=== PATIENT | female | born 1995 | race Caucasian/White ===

== ENCOUNTER 2019-05-02 13:07 | Emergency (ER) | payer BC ==
--- NOTE | 2019-05-02 13:58 | EDM.PDOCBH ---
ED HPI GENERAL MEDICAL PROBLEM - General Chief Complaint: Behavioral/Psych Stated Complaint: ANXIETY Time Seen by Provider: 05/02/19 13:25 Source of Information: Reports: Patient, Family (Mother) History Limitations: Reports: No Limitations - History of Present Illness INITIAL COMMENTS - FREE TEXT/NARRATIVE: Ms. Brandon is a 23-year-old woman with a past medical history significant for anxiety, depression, ADHD, a suicide attempt about 1.5 years ago, and a learning disability, who states that she has been feeling depressed for about 3 weeks, but worse for the past week. She states that she feels suicidal, but does not have a plan. She feels anxious. The patient states that she is prescribed sertraline, buspirone, clonazepam, and lisdexamfetamine (Vyvanse), but that she self-discontinued her sertraline and buspirone about one year ago, because she didn't think that she needed it. She did not notify her psychiatric midlevel of her actions; she last saw her psychiatric midlevel on 02/10/2019. The patient has attempted suicide on 3 prior occasions; by pill overdose in 2014 , by cutting herself in 2016, and by pill overdose in December 2017. On all 3 occasions, she was psychiatrically hospitalized. The pateint does not have a PCP. 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 (See Below) (Ovarian cysts) Neurological History: Reports: Other (See Below) (Learning disability) Psychiatric History: Reports: ADHD, Anxiety, Depression, Suicide Attempt - Past Surgical History GI Surgical History: Reports: Appendectomy (07/29/2018) Female Surgical History: Reports: Other (See Below) (Exploratory laparoscopy for ovarian cyst 07/29/2018) Social & Family History - Family History Family Medical History: Noncontributory - Tobacco Use Smoking Status *Q: Never Smoker Tobacco Use Within Last Twelve Months: Other (See Below) (Vapes) - Caffeine Use Caffeine Use: Reports: None - Alcohol Use Alcohol Use History: Yes Alcohol Use Frequency: Socially - Recreational Drug Use Recreational Drug Use: Yes Drug Use in Last 12 Months: Yes Recreational Drug Type: Reports: Marijuana/Hashish (last smoked 2017) - Living Situation & Occupation Living situation: Reports: Single, Alone Occupation: Employed ([employer]) ED ROS GENERAL - Review of Systems Review Of Systems: ROS reveals no pertinent complaints other than HPI. ED EXAM, BEHAVIORAL HEALTH - Physical Exam Exam: See Below Exam Limited By: No Limitations General Appearance: Alert, WD/WN, No Apparent Distress Eye Exam: Bilateral Eye: EOMI, Normal Inspection Ears: Normal External Exam, Hearing Grossly Normal Nose: Normal Inspection Throat/Mouth: Normal Inspection, Normal Lips, Normal Voice, No Airway Compromise Head: Atraumatic, Normocephalic Neck: Normal Inspection, Full Range of Motion Respiratory/Chest: No Respiratory Distress, Lungs Clear, Normal Breath Sounds, No Accessory Muscle Use Cardiovascular: Normal Peripheral Pulses, Regular Rate, Rhythm, No Edema, No Gallop, No JVD, No Murmur, No Rub GI/Abdominal: Normal Bowel Sounds, Soft, Non-Tender, No Organomegaly, No Distention, No Abnormal Bruit, No Mass (Female) Exam: Deferred Rectal (Female) Exam: Deferred Back Exam: Normal Inspection, Full Range of Motion, NT Extremities: Normal Inspection, Normal Range of Motion, No Pedal Edema, Normal Capillary Refill Neurological: Alert, Normal Cognition, No Motor/Sensory Deficits, Oriented x 3 Psychiatric: Normal Affect Skin Exam: Warm, Dry, Intact, Normal color, No rash COURSE, BEHAVIORAL HEALTH COMP - Course Vital Signs: Last Vital Signs Temp 36.6 C 05/02/19 13:10 Pulse 65 05/02/19 13:10 Resp 16 05/02/19 13:10 BP 132/73 05/02/19 13:10 Pulse Ox 98 05/02/19 13:10 Medical Clearance: 05/02/19 13:56 As per the HPI, the patient is feeling depressed and suicidal, although she has no plan, and she states that she is not going to kill herself. She does not feel that she needs to be psychiatrically hospitalized, however, I am not sure what else we might be able to offer her. Even we were to restart her sertraline today, it typically takes 3-4 weeks before begins to take effect, and buspirone takes up to 3 months before it begins to take effect. I have called the office of Bailee Wheeler DNP, to see what her thoughts are. She is presently with a patient, but will call me back in a few minutes. 05/02/19 15:10 Case discussed with Bailee Wheeler DNP, at 15:05. I am going to prescribe buspirone 15 mg po BID and sertraline 50 mg po Qday. The patient is to follow- up with Ms. Wheeler on morning, 05/18/2019, at 11 AM CDT. I will prescribe enough to last through then. 05/02/19 15:16 My conversation with Ms. Wheeler, and her recommendations, discussed with the patient and her mother. Because the patient has not been taking her BuSpar or Zoloft, she has large quantities of them at home, and therefore does not require any prescriptions. I reviewed the dosage of the pills that she has in her possession, and will instruct her on the proper dosage. 05/02/19 15:33 Notified by Pooja JACKMAN that the patient would like a note for work for tomorrow, because working at [employer] adds to her depression. Departure - Departure Time of Disposition: 15:17 Disposition: Home, Self-Care 01 Condition: Good Clinical Impression: Depression, Noncompliance with medications, Suicidal ideation - Discharge Information *PRESCRIPTION DRUG MONITORING PROGRAM REVIEWED*: Not Applicable *COPY OF PRESCRIPTION DRUG MONITORING REPORT IN PATIENT BOB: Not Applicable Instructions: Suicidal Feelings: How to Help Yourself, Major Depressive Disorder, Adult Referrals: Bailee Wheeler MD [Ordering Only Provider] - Forms: ED Department Discharge, ED Return to Work/School Form Additional Instructions: You were seen in the emergency room for depression and suicidal ideation after discontinuing your Zoloft and BuSpar about a year ago. Your case was discussed with your Psychologist, Bailee Wheeler DNP. She recommended that you restart your sertraline (Zoloft) at 50 mg once a day, and that you restart your buspirone (BuSpar) at 15 mg (= half a tablet) twice a day. An appointment for you to follow-up with Ms. Wheeler has been made for , May 18, 2019, at 11 AM central time. If any other problems, including worsening of your depression or suicidal ideation, please do not hesitate to return to the ER.
== END 2019-05-02 15:39 | disposition home or self-care (01) ==
LOC: JD.ED 13:07
DX: F32.9 Major depressive disorder, single episode, unspecified (principal); R45.851 Suicidal ideations; Z91.14 Patient's other noncompliance with medication regimen; Z79.899 Other long term (current) drug therapy; Z88.2 Allergy status to sulfonamides; Z90.49 Acquired absence of other specified parts of digestive tract; Z88.0 Allergy status to penicillin
CPT/HCPCS: 99284; 99285

== ENCOUNTER 2019-06-14 22:14 | Emergency (ER) | payer BC ==
[2019-06-14] MEDS: DULoxetine 30 MG Cap PO ONE (22:53)
[2019-06-14] MEDS: busPIRone 15 MG Tab PO ONE (22:53)
[2019-06-14] MEDS: Ketorolac 30 MG/ML SDV IM ONE (22:53)
[2019-06-14] MEDS: Zolpidem 5 MG Tab PO ONE (22:54)
[2019-06-14] MEDS: ClonazePAM 1 MG Tab PO ONE (22:54)
--- NOTE | 2019-06-14 22:59 | EDM.PDOCBH ---
ED HPI GENERAL MEDICAL PROBLEM - General Chief Complaint: Behavioral/Psych Stated Complaint: ANXIETY Time Seen by Provider: 06/14/19 22:31 Source of Information: Reports: Patient, Family (parents) History Limitations: Reports: No Limitations - History of Present Illness INITIAL COMMENTS - FREE TEXT/NARRATIVE: Patient is a 23-year-old female who presents to the ED with her mother and father for the evaluation of anxiety. The patient notes that she had a friend that overdosed on heroin in her home today. Patient notes that her apartment is now considered a crime scene, so she was not able to take anything for the apartment, so she could not get her prescription medications that she takes on a daily basis. These include clonazepam, buspirone, Cymbalta, and Vyvanse. Patient notes that she is having increased anxiety and stress due to the recent passing of her friend. The patient's psychiatric provider is Bailee Beal in [facility]. Family states that she has an appointment on June 23 with her provider. The mother and father are her legal guardians, and the patient does have a developmental delay, but does live by her own intention. The mother and father were questioning whether or not she was taking illicit drugs, the patient states that she smoked marijuana once in her life, and used meth once in her life, but she vehemently denies using any sort of heroin tonight. She was also requesting something for sleep. Patient is also complaining of some right shoulder pain, she states that she slept pretty hard on her right shoulder last night as she went out and had drinks with friends. Right Shoulder Pain Score (Numeric/FACES): 5 - Related Data Allergies Allergy/AdvReac Type Severity Reaction Status Date / Time Penicillins Allergy Rash Verified 05/02/19 13:20 Sulfa (Sulfonamide Allergy Rash Verified 05/02/19 13:20 Antibiotics) Home Meds: Home Meds ClonazePAM [KlonoPIN] 0.75 mg PO BEDTIME 07/28/18 [History] busPIRone [Buspar] 15 mg PO BID 07/29/18 [History] Lisdexamfetamine Dimesylate [Vyvanse] 50 mg PO DAILY 05/02/19 [History] ClonazePAM [KlonoPIN] 0.75 mg PO BEDTIME 10 Days #15 tab 06/14/19 [Rx] DULoxetine HCl [Duloxetine HCl] 30 mg PO QPM #10 capsule. 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 Musculoskeletal History: Reports: None Neurological History: Reports: Other (See Below) Psychiatric History: Reports: ADHD, Anxiety, Depression, Suicide Attempt Endocrine/Metabolic History: Reports: None Hematologic History: Reports: None Immunologic History: Reports: None Oncologic (Cancer) History: Reports: None Dermatologic History: Reports: None - Past Surgical History Head Surgeries/Procedures: Reports: None GI Surgical History: Reports: Appendectomy Female Surgical History: Reports: Other (See Below) Social & Family History - Family History Family Medical History: Noncontributory - Tobacco Use Smoking Status *Q: Current Every Day Smoker Years of Tobacco use: 2 Packs/Tins Daily: 1 - Caffeine Use Caffeine Use: Reports: None - Recreational Drug Use Recreational Drug Use: No - Living Situation & Occupation Living situation: Reports: Single, Alone Occupation: Employed ([employer]) ED ROS GENERAL - Review of Systems Review Of Systems: See Below Constitutional: Denies: Fever, Chills HEENT: Reports: No Symptoms Respiratory: Denies: Shortness of Breath Cardiovascular: Denies: Chest Pain Endocrine: Reports: No Symptoms GI/Abdominal: Denies: Diarrhea, Nausea, Vomiting : Reports: No Symptoms Musculoskeletal: Reports: Shoulder Pain (right shoulder pain) Skin: Reports: No Symptoms Neurological: Reports: No Symptoms Psychiatric: Reports: Anxiety, Depression Hematologic/Lymphatic: Reports: No Symptoms Immunologic: Reports: No Symptoms ED EXAM, BEHAVIORAL HEALTH - Physical Exam Exam: See Below Exam Limited By: No Limitations General Appearance: Alert, WD/WN, No Apparent Distress (pt is crying and has reddened eyes in the room) Eye Exam: Bilateral Eye: Conjunctival Injection, EOMI, Normal Inspection, PERRL Ears: Normal External Exam Throat/Mouth: Normal Inspection, Normal Lips, Normal Teeth, Normal Gums, Normal Oropharynx, Normal Voice, No Airway Compromise Head: Atraumatic, Normocephalic Neck: Normal Inspection Respiratory/Chest: No Respiratory Distress, Lungs Clear, Normal Breath Sounds, No Accessory Muscle Use, Chest Non-Tender Cardiovascular: Normal Peripheral Pulses, Regular Rate, Rhythm, No Murmur GI/Abdominal: Normal Bowel Sounds, Soft, Non-Tender, No Distention, No Mass Extremities: Normal Inspection, Normal Capillary Refill, Limited Range of Motion (of right shoulder d/t pain) Neurological: Alert, Normal Mood/Affect, Normal Cognition, Normal Gait, Oriented x 3 Psychiatric: Alert, Oriented, Tearful Skin Exam: Warm, Dry, Intact, Normal color, No rash COURSE, BEHAVIORAL HEALTH COMP - Course Vital Signs: Last Vital Signs Temp 98.0 F 06/14/19 22:33 Pulse 105 H 06/14/19 22:33 Resp 20 06/14/19 22:33 BP 123/83 06/14/19 22:33 Pulse Ox 95 06/14/19 22:33 Orders, Labs, Meds: Active Orders 24 hr Category Date Time Status DRUG SCREEN, URINE [URCHEM] Stat Lab 06/14/19 22:46 Ordered Medications Discontinued Medications Generic Name Dose Route Start Last Admin Trade Name Davidq PRN Reason Stop Dose Admin Buspirone HCl 15 mg 06/14/19 22:42 06/14/19 22:53 Buspar PO 06/14/19 22:43 15 mg ONETIME ONE Administration Clonazepam 0.75 mg 06/14/19 22:41 06/14/19 22:54 Klonopin PO 06/14/19 22:42 0.75 mg ONETIME ONE Administration Duloxetine HCl 30 mg 06/14/19 22:40 06/14/19 22:53 Cymbalta PO 06/14/19 22:41 30 mg ONETIME ONE Administration Ketorolac Tromethamine 30 mg 06/14/19 22:42 06/14/19 22:53 Toradol IM 06/14/19 22:43 30 mg ONETIME ONE Administration Zolpidem Tartrate 5 mg 06/14/19 22:42 06/14/19 22:54 Ambien PO 06/14/19 22:43 5 mg ONETIME ONE Administration Discharge vs Psych Eval/Treatment:: 06/14/19 22:59 Patient presents to the ED for evaluation of her anxiety. At this time I will provide her with her nighttime medications, I did provide her with one tablet of Ambien so she may sleep tonight. The mother in the room was requesting that the patient have a urine drug screen done, to see if she was taking any sort of drugs from her friend that . The patient denies using any drugs, and refuses to give a drug screen at this time. Due to the patient's age, she is an adult, and can make decisions, and I don't find there any need to perform a urinalysis if the patient does not want to have a drug screen done. I will try to explain to the mother that due to her being adult, I cannot make her give us a urine sample. If they have any other lingering concerns they will have to probably get one legally mandated. I did provide the patient with enough medication to get her through until the appointment with her provider in [place]. Departure - Departure Time of Disposition: 23:03 Disposition: Home, Self-Care 01 Condition: Fair Clinical Impression: Anxiety, Encounter for medication refill - Discharge Information *PRESCRIPTION DRUG MONITORING PROGRAM REVIEWED*: No *COPY OF PRESCRIPTION DRUG MONITORING REPORT IN PATIENT BOB: No Prescriptions: busPIRone [Buspar] 15 mg PO BID #20 tab ClonazePAM [KlonoPIN] 0.75 mg PO BEDTIME 10 Days #15 tab DULoxetine HCl [Duloxetine HCl] 30 mg PO QPM #10 capsule. Lisdexamfetamine Dimesylate [Vyvanse] 50 mg PO QAM #10 capsule Zolpidem [Ambien] 5 mg PO BEDTIME #2 tab Instructions: Medicine Refill at the Emergency Department, Living With Anxiety Referrals: PCP,None [Primary Care Provider] - Forms: ED Department Discharge Additional Instructions: You evaluated in the ER today regarding your anxiety. You were given enough of your prescriptions to get her through until you can be evaluated by your provider in [place] on June 23. Please take them as previously prescribed. These were electronically prescribed to the [facility] pharmacy located in [place], [place] as per your request. You were also prescribed 2 tablets of Ambien, for the next couple nights, as you did experience a traumatic life change. Please use 1 tablet nightly for sleep. You may use 600 mg ibuprofen or 500 mg Tylenol for your right shoulder pain, you may also use heat or ice to the area to see if this does not help provide pain relief as well. Please follow up with your provider in [place] on June 23 as previously scheduled. Please return to the ER if your symptoms should change or worsen. - My Orders Last 24 Hours: My Active Orders 06/14/19 22:46 DRUG SCREEN, URINE [URCHEM] Stat - Assessment/Plan Last 24 Hours: My Active Orders 06/14/19 22:46 DRUG SCREEN, URINE [URCHEM] Stat
== END 2019-06-14 23:23 | disposition home or self-care (01) ==
LOC: JD.ED 22:14
DX: F41.9 Anxiety disorder, unspecified (principal); Z76.0 Encounter for issue of repeat prescription; F32.9 Major depressive disorder, single episode, unspecified; F17.210 Nicotine dependence, cigarettes, uncomplicated; Z88.0 Allergy status to penicillin; Z88.2 Allergy status to sulfonamides; Z79.899 Other long term (current) drug therapy
CPT/HCPCS: 96372; 99283; A9270; J1885

== ENCOUNTER 2019-08-08 13:21 | Emergency (ER) | payer BC ==
--- NOTE | 2019-08-08 14:41 | EDM.PDOC ---
ED HPI GENERAL MEDICAL PROBLEM - General Chief Complaint: Neurological Problem Stated Complaint: DIZZY/LETHARGIC Time Seen by Provider: 08/08/19 14:36 Source of Information: Reports: Patient History Limitations: Reports: No Limitations - History of Present Illness INITIAL COMMENTS - FREE TEXT/NARRATIVE: 23-year-old female presents the ED for evaluation of severe dizziness with standing. Both her and her mother identified that symptoms seem to have started since changing medication by psychiatrist last week. She's not been sleeping all that well and psychiatrist increased her trazodone from 50-100 mg at bedtime and started on prazosin or Minipress once daily as well. States that she is very lightheaded dizzy with standing and feels like she's going to pass out. On. Appetite has been poor and she feels very thirsty and dry. His current discussions with the psychiatrist have resulted in withdrawal of the trazodone back to 50 mg at bedtime and no further use of the Minipress. However, 2 days later she remains symptomatic. Feels hot at times. Her on initial vital signs. Onset: Sudden Onset Date: 08/05/19 Duration: Day(s):, Constant Location: Reports: Generalized ([place] sense of dizziness and weakness.) Quality: Reports: Other (Dizzy and lightheaded.) Severity: Severe Improves with: Reports: Rest (If she's lying down resting.) Worsens with: Reports: Other ([place] up) Context: Reports: Other (Recent changes to medications being used by psychiatry services with a doubling of her trazodone from 50-100 mg at bedtime and the introduction of Minipress which the dose is not listed once daily at bedtime.). Denies: Activity, Exercise, Lifting, Sick Contact, Trauma Associated Symptoms: Reports: Loss of Appetite, Malaise, Nausea/Vomiting, Other (Chronic constipation). Denies: Confusion, Chest Pain, Cough, cough w sputum, Diaphoresis, Fever/Chills, Headaches, Rash, Seizure (Mild nausea), Shortness of Breath, Syncope Headache Pain Score (Numeric/FACES): 6 - Related Data Allergies Allergy/AdvReac Type Severity Reaction Status Date / Time Penicillins Allergy Rash Verified 07/04/19 12:11 Sulfa (Sulfonamide Allergy Rash Verified 07/04/19 12:11 Antibiotics) Home Meds: Home Meds Lisdexamfetamine Dimesylate [Vyvanse] 50 mg PO QAM #10 capsule 06/14/19 [Rx] busPIRone [Buspar] 15 mg PO BID #20 tab 06/14/19 [Rx] ClonazePAM [KlonoPIN] 0.5 mg PO DAILY PRN 07/04/19 [History] DULoxetine HCl [Duloxetine HCl] 60 mg PO QPM 07/04/19 [History] Cetirizine [ZyrTEC] 10 mg PO DAILY 08/08/19 [History] ClonazePAM [KlonoPIN] 1 mg PO BEDTIME 08/08/19 [History] Multivitamin Gummies 1 tab PO DAILY 08/08/19 [History] medroxyPROGESTERone Acetate [Depo-Provera] 1 injection INJECT Q3M 08/08/19 [ History] traZODone HCl [Trazodone HCl] 50 mg PO BEDTIME 08/08/19 [History] Past Medical History HEENT History: Reports: Allergic Rhinitis, Impaired Vision Cardiovascular History: Reports: None Respiratory History: Reports: None Gastrointestinal History: Reports: None Genitourinary History: Reports: None 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 (See Below) Other 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: control Musculoskeletal History: Reports: None Neurological History: Reports: Other (See Below) Psychiatric History: Reports: ADHD, Anxiety, Depression, Suicide Attempt, Suicidal Ideation Endocrine/Metabolic History: Reports: None Hematologic History: Reports: None Immunologic History: Reports: None Oncologic (Cancer) History: Reports: None Dermatologic History: Reports: None - Past Surgical History Head Surgeries/Procedures: Reports: None GI Surgical History: Reports: Appendectomy Female Surgical History: Reports: Other (See Below) Social & Family History - Family History Family Medical History: Noncontributory - Tobacco Use Smoking Status *Q: Current Every Day Smoker Years of Tobacco use: 4 Packs/Tins Daily: 1 - Caffeine Use Caffeine Use: Reports: Coffee - Recreational Drug Use Recreational Drug Use: No - Living Situation & Occupation Living situation: Reports: Single, Alone Occupation: Employed ([employer]) ED ROS GENERAL - Review of Systems Review Of Systems: See Below Constitutional: Reports: Malaise, Weakness, Fatigue, Decreased Appetite. Denies : Fever, Chills HEENT: Reports: Other (Dizziness but it's more of a sensation that she might pass out.). Denies: Vertigo Respiratory: Reports: No Symptoms Cardiovascular: Reports: No Symptoms Endocrine: Reports: No Symptoms GI/Abdominal: Reports: Constipation : Reports: No Symptoms Musculoskeletal: Reports: No Symptoms Skin: Reports: No Symptoms Neurological: Reports: Dizziness, Difficulty Walking, Weakness. Denies: Confusion, Headache, Numbness, Paresthesia, Pre-Existing Deficit, Seizure, Syncope, Tingling Psychiatric: Reports: Anxiety (Due to feeling so dizzy. ), Depression (History of PTSD.), Other Hematologic/Lymphatic: Reports: No Symptoms Immunologic: Reports: No Symptoms ED EXAM, NEURO - Physical Exam Exam: See Below Exam Limited By: No Limitations General Appearance: Alert, WD/WN, No Apparent Distress, Other (Ears tired. Temperature is 36.8 heart rate is 54 BP 108/63. Respondent is 22 with sats of 90 % on room air.) Eye Exam: Bilateral Eye: Normal Inspection Ears: Normal TMs Throat/Mouth: Normal Inspection, Normal Lips, Normal Teeth, Normal Oropharynx Head Exam: Atraumatic, Normocephalic Neck: Normal Inspection, Supple, Non-Tender, Full Range of Motion. No: Lymphadenopathy (L), Lymphadenopathy (R) Respiratory/Chest: No Respiratory Distress, Lungs Clear, Normal Breath Sounds, Chest Non-Tender Cardiovascular: Normal Peripheral Pulses, No Edema, No Gallop, No Murmur, No Rub , Bradycardia Neurological: Alert, Oriented x 3 Extremities: Normal Inspection, Normal Range of Motion, Non-Tender Psychiatric: Flat Affect, Other Skin Exam: Warm, Dry, Intact (Pe[place] tired), Normal Color, No Rash Course - Vital Signs Last Recorded V/S: Last Vital Signs Temp 36.8 C 08/08/19 13:58 Pulse 54 L 08/08/19 13:58 Resp 20 08/08/19 13:58 BP 108/63 08/08/19 13:58 Pulse Ox 98 08/08/19 13:58 Orthostatic Blood Pressure [ 95/68 Standing] Orthostatic Blood Pressure [ 93/64 Sitting] Orthostatic Blood Pressure [ 96/61 Supine] - Orders/Labs/Meds Orders: Active Orders 24 hr Category Date Time Status Orthostatic Vital Signs [RC] ASDIRECTED Care 08/08/19 14:35 Active Labs: Laboratory Tests 08/08/19 08/08/19 08/08/19 Range/Units 15:20 15:20 15:20 WBC 4.16 (3.98-10.04) K/mm3 RBC 4.63 (3.98-5.22) M/mm3 Hgb 13.2 (11.2-15.7) gm/dl Hct 38.5 (34.1-44.9) % MCV 83.2 D (79.4-94.8) fl MCH 28.5 (25.6-32.2) pg MCHC 34.3 (32.2-35.5) g/dl RDW Std Deviation 39.0 (36.4-46.3) fL Plt Count 189 (182-369) K/mm3 MPV 10.5 (9.4-12.3) fl Neut % (Auto) 48.0 (34.0-71.1) % Lymph % (Auto) 42.8 (19.3-51.7) % [place] % (Auto) 7.0 (4.7-12.5) % Eos % (Auto) 1.7 (0.7-5.8) Baso % (Auto) 0.5 (0.1-1.2) % Neut # (Auto) 2.00 (1.56-6.13) K/mm3 Lymph # (Auto) 1.78 (1.18-3.74) K/mm3 [place] # (Auto) 0.29 (0.24-0.36) K/mm3 Eos # (Auto) 0.07 (0.04-0.36) K/mm3 Baso # (Auto) 0.02 (0.01-0.08) K/mm3 Sodium 143 (136-145) mEq/L Potassium 3.8 (3.5-5.1) mEq/L Chloride 106 (98-107) mEq/L Carbon Dioxide 28 (21-32) mEq/L Anion Gap 12.8 (5-15) BUN 15 (7-18) mg/dL Creatinine 0.9 (0.55-1.02) mg/dL Est Cr Clr Drug Dosing 92.56 mL/min Estimated GFR (MDRD) > 60 (>60) mL/min BUN/Creatinine Ratio 16.7 (14-18) Glucose 112 H (74-106) mg/dL Calcium 8.8 (8.5-10.1) mg/dL Total Bilirubin 0.7 (0.2-1.0) mg/dL AST 9 L (15-37) U/L ALT 15 (14-59) U/L Alkaline Phosphatase 52 (46-116) U/L C-Reactive Protein < 0.2 (<1.0) mg/dL Total Protein 6.7 (6.4-8.2) g/dl Albumin 4.2 (3.4-5.0) g/dl Globulin 2.5 gm/dL Albumin/Globulin Ratio 1.7 (1-2) HCG, Qual Negative (NEGATIVE) Meds: Medications Discontinued Medications Generic Name Dose Route Start Last Admin Trade Name Carolynn PRN Reason Stop Dose Admin Dextrose/Sodium Chloride 1,000 mls @ 999 mls/hr 08/08/19 15:15 08/08/19 15:25 Dextrose 5%-Normal Saline IV 999 mls/hr ASDIRECTED JAMARI Administration Dextrose/Lactated Ringer's 1,000 mls @ 999 mls/hr 08/08/19 16:45 08/08/19 17: 06 Dextrose 5%-Lactated Ringers IV 999 mls/hr ASDIRECTED JAMARI Administration - Radiology Interpretation Free Text/Narrative:: 23-year-old female presents to the ED due to severe dizziness with standing. Since change in medications by her psychiatrist last week. Her trazodone was increased from 50-100 mg once daily at bedtime to help her sleep better. Started on August 04. On Wednesday she also started Minipress dose not listed once daily which seemed to really make her symptoms much worse. Subsequent discussion with the psychiatrist is resulted in reduction of the trazodone back to 50 mg a day and the discontinuation of the Minipress. Still feeling dizzy lightheaded with standing. She feels mildly nauseated. [place] is otherwise completely normal. Her blood pressure is 108/60. Plan orthostatic BPs to be done. Likely require IV fluids as I suspect she will be orthostatic. Her medication Minipress is already been discontinued. - Re-Assessments/Exams Free Text/Narrative Re-Assessment/Exam: 08/08/19 15:09 orthostatic BPs reveal a mild drop in the systolic blood pressure from 98-95 but a marked increase in heart rate from 60-92/m. He is therefore orthostatic by definition. She'll be given a liter of D5 normal saline to routine labs will be obtained. Is still likely a residual effect of increased medications trazodone and the introduction of Minipress 2 mg at bedtime given 2 nights ago. 08/08/19 15:55 Labs reveal a normal white count at 4.16. The outer dip is 48% neutrophils. Hemoglobin is 13.2 with hematocrit of 38.5. Blood count 189,000. 08/08/19 16:25 Chemistry reveals a sodium of 143 potassium 3.8. Chloride is 106 with a bicarbonate of 28. And a gap is 12.8. BUN is 15 with a creatinine of 0.9. GFR remains greater than 60. Glucose is 112 calcium is 8.8 x 0.7 liver function otherwise normal C-reactive protein less than 0.2 hCG was negative. 08/08/19 16:40 nurses repeated her orthosis and she did much better but she still feeling dizzy when standing and has yet to void. She. Last voided at 11: 00 last night. The labs don't reflect this degree of dehydration. However we will proceed with a second liter of IV fluids D5 LR at open. 08/08/19 18:22: Patient has completed second liter of IV fluids and is feeling improved. Dizzy with standing. Says his orthostatic hypotension due to adverse effect to medication Minipress. She has taken only 1 tablet of this on Wednesday night at bedtime 2 days ago. The half-life of this medication is 3 days and she should be improved tomorrow. She is to maintain adequate hydration with Gatorade and/or Powerade. Regular diet. As far as medication to help sleep advise taking her usual medications trazodone 50 mg with clonazepam at bedtime and if not sleeping in an hour she can repeat the trazodone 50 mg tablet. They will be following up with psychiatry in the near future. Departure - Departure Time of Disposition: 18:06 Disposition: Home, Self-Care 01 Condition: Fair Clinical Impression: Orthostatic hypotension Adverse effects of medication Qualifiers: Encounter type: initial encounter Qualified Code(s): T50.905A - Adverse effect of unspecified drugs, medicaments and biological substances, initial encounter - Discharge Information *PRESCRIPTION DRUG MONITORING PROGRAM REVIEWED*: Not Applicable *COPY OF PRESCRIPTION DRUG MONITORING REPORT IN PATIENT BOB: Not Applicable Instructions: Hypotension, [id number] Referrals: PCP,None [Primary Care Provider] - Forms: ED Department Discharge Additional Instructions: Evaluation the emergency room today in regards to persistent dizziness and feeling like her going to pass out with standing after taking new medication Minipress 2 mg on Wednesday evening. I believe strongly that this medication contributed to your illness and is pretty well out of her system after 72 hours. Testing in the ED did show that she were suffering orthostatic hypotension which means that her blood pressure normally goes up when we stand up to fight off the effect of gravity Dropped with a marked increase in heart rat Lab tests proved to be normal. You were treated with 2 L liters of intravenous fluids while in the ED to improve blood pressure. At home continue to take plenty of fluids such as Gatorade or Powerade which is very similar to IV fluids. No further use of Minipress. Leave it is okay to use double dose of trazodone if necessary to help sleep. Suggest taking 50 mg with her clonazepam and if not sleeping in an hour you may repeat the trazodone 50 mg by mouth. Follow-up with psychiatrist as planned. Sepsis Event Note - Evaluation Sepsis Screening Result: No Definite Risk - Focused Exam Vital Signs: Vital Signs Temp Pulse Resp BP Pulse Ox 08/08/19 13:58 36.8 C 54 L 20 108/63 98 Date Exam was Performed: 08/08/19 Time Exam was Performed: 23:21 - My Orders Last 24 Hours: My Active Orders 08/08/19 14:35 Orthostatic Vital Signs [RC] ASDIRECTED - Assessment/Plan Last 24 Hours: My Active Orders 08/08/19 14:35 Orthostatic Vital Signs [RC] ASDIRECTED
[2019-08-08] MEDS ORDERED: Dextrose 5%-0.9% NaCl 1,000 ML IV SCH (15:15)
[2019-08-08] MEDS ORDERED: Dextrose 5%-Lactated Ringers 1,000 ML IV SCH (16:45)
== END 2019-08-08 18:25 | disposition home or self-care (01) ==
LOC: SUPCPDRO 13:21 → JD.ED 13:21
DX: I95.1 Orthostatic hypotension (principal); T50.905A Adverse effect of unspecified drugs, medicaments and biological substances, initial encounter; F32.9 Major depressive disorder, single episode, unspecified; F17.210 Nicotine dependence, cigarettes, uncomplicated; Z88.0 Allergy status to penicillin; Z88.2 Allergy status to sulfonamides; Z79.899 Other long term (current) drug therapy
CPT/HCPCS: 36415; 80053; 84703; 85025; 86140; 96360; 96361; 99284; J7042; J7121

== ENCOUNTER 2019-10-23 06:44 | Emergency (ER) | payer BC ==
[2019-10-23] MEDS ORDERED: Ondansetron 4 MG Tab.DIS PO ONE (07:24)
--- NOTE | 2019-10-23 09:49 | EDM.PDOC ---
ED HPI GENERAL MEDICAL PROBLEM - General Chief Complaint: Abdominal Pain Stated Complaint: STOMACH PAINS Time Seen by Provider: 10/23/19 07:08 Source of Information: Reports: Patient, RN Notes Reviewed - History of Present Illness INITIAL COMMENTS - FREE TEXT/NARRATIVE: 24-year-old male comes in with lower mid abdominal and pelvic discomfort. This just started in the last day or so. Pain does not radiate. There is been no upper abdominal pain with this. No vomiting or diarrhea. No voiding symptomatology. Does have history of prior appendectomy. Bilateral Lower Abdomen Pain Score (Numeric/FACES): 7 - Related Data Allergies Allergy/AdvReac Type Severity Reaction Status Date / Time Penicillins Allergy Rash Verified 10/23/19 06:47 Sulfa (Sulfonamide Allergy Rash Verified 10/23/19 06:47 Antibiotics) Home Meds: Home Meds Lisdexamfetamine Dimesylate [Vyvanse] 50 mg PO QAM #10 capsule 06/14/19 [Rx] busPIRone [Buspar] 15 mg PO BID #20 tab 06/14/19 [Rx] ClonazePAM [KlonoPIN] 0.5 mg PO DAILY PRN 07/04/19 [History] DULoxetine HCl [Duloxetine HCl] 60 mg PO QPM 07/04/19 [History] Cetirizine [ZyrTEC] 10 mg PO DAILY 08/08/19 [History] ClonazePAM [KlonoPIN] 1 mg PO BEDTIME 08/08/19 [History] Multivitamin Gummies 1 tab PO DAILY 08/08/19 [History] medroxyPROGESTERone Acetate [Depo-Provera] 1 injection INJECT Q3M 08/08/19 [ History] traZODone HCl [Trazodone HCl] 50 mg PO BEDTIME 08/08/19 [History] Nitrofurantoin Monohyd/M-Cryst [Macrobid 100 mg Capsule] 100 mg PO BID #10 capsule 10/23/19 [Rx] Past Medical History - Past Health History Medical/Surgical History: Denies Medical/Surgical History HEENT History: Reports: Allergic Rhinitis, Impaired Vision Other HEENT History: Wears glasses Cardiovascular History: Reports: None Respiratory History: Reports: None Gastrointestinal History: Reports: None Genitourinary History: Reports: None 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 (See Below) 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 Musculoskeletal History: Reports: None Neurological History: Reports: Other (See Below) Psychiatric History: Reports: ADHD, Anxiety, Depression, Suicide Attempt, Suicidal Ideation Endocrine/Metabolic History: Reports: None Hematologic History: Reports: None Immunologic History: Reports: None Oncologic (Cancer) History: Reports: None Dermatologic History: Reports: None - Past Surgical History Head Surgeries/Procedures: Reports: None HEENT Surgical History: Reports: Oral Surgery Other HEENT Surgeries/Procedures: [place] tooth extraction GI Surgical History: Reports: Appendectomy Female Surgical History: Reports: Other (See Below) Social & Family History - Family History Family Medical History: Noncontributory - Tobacco Use Smoking Status *Q: Current Every Day Smoker Years of Tobacco use: 5 Packs/Tins Daily: 0.5 - Caffeine Use Caffeine Use: Reports: Coffee - Recreational Drug Use Recreational Drug Use: Yes Drug Use in Last 12 Months: Yes Recreational Drug Type: Reports: Oxycodone Recreational Drug Use Frequency: Not Used In Over 2 Months - Living Situation & Occupation Living situation: Reports: Single, Alone Occupation: Employed ([employer]) ED ROS GENERAL - Review of Systems Review Of Systems: See Below Constitutional: Denies: Fever, Chills, Diaphoresis HEENT: Reports: No Symptoms Respiratory: Denies: Shortness of Breath Cardiovascular: Denies: Chest Pain GI/Abdominal: Reports: Abdominal Pain (Lower mid abdominal and pelvic) : Reports: No Symptoms Musculoskeletal: Denies: Back Pain Skin: Reports: No Symptoms Neurological: Reports: No Symptoms ED EXAM, RENAL/ - Physical Exam Exam: See Below General Appearance: Alert, No Apparent Distress Throat/Mouth: Normal Inspection, Normal Oropharynx Head: Atraumatic Neck: Supple Respiratory/Chest: No Respiratory Distress, Lungs Clear, Normal Breath Sounds Cardiovascular: Regular Rate, Rhythm GI/Abdominal: Soft, Other (Very mild lower mid abdominal tenderness, upper abdomen nontender). No: Guarding, Rebound Back Exam: No: CVA Tenderness (L), CVA Tenderness (R) Neurological: Alert, Oriented, No Motor/Sensory Deficits Skin Exam: Warm, Dry, Normal Color Course - Vital Signs Last Recorded V/S: Last Vital Signs Temp 98.1 F 10/23/19 06:47 Pulse 84 10/23/19 06:47 Resp 18 10/23/19 06:47 BP 124/65 03/09/20 06:47 Pulse Ox 100 10/23/19 06:47 - Orders/Labs/Meds Orders: Active Orders 24 hr Category Date Time Status CULTURE URINE [RM] Stat Lab 10/23/19 08:09 Received Labs: Laboratory Tests 10/23/19 10/23/19 10/23/19 Range/Units 07:40 07:40 07:40 WBC 4.33 (3.98-10.04) K/mm3 RBC 4.21 (3.98-5.22) M/mm3 Hgb 12.0 (11.2-15.7) gm/dl Hct 36.6 (34.1-44.9) % MCV 86.9 D (79.4-94.8) fl MCH 28.5 (25.6-32.2) pg MCHC 32.8 (32.2-35.5) g/dl RDW Std Deviation 39.8 (36.4-46.3) fL Plt Count 222 (182-369) K/mm3 MPV 10.4 (9.4-12.3) fl Neut % (Auto) 50.2 (34.0-71.1) % Lymph % (Auto) 39.7 (19.3-51.7) % [place] % (Auto) 6.9 (4.7-12.5) % Eos % (Auto) 2.5 (0.7-5.8) Baso % (Auto) 0.5 (0.1-1.2) % Neut # (Auto) 2.17 (1.56-6.13) K/mm3 Lymph # (Auto) 1.72 (1.18-3.74) K/mm3 [place] # (Auto) 0.30 (0.24-0.36) K/mm3 Eos # (Auto) 0.11 (0.04-0.36) K/mm3 Baso # (Auto) 0.02 (0.01-0.08) K/mm3 Sodium 146 H (136-145) mEq/L Potassium 4.2 (3.5-5.1) mEq/L Chloride 110 H (98-107) mEq/L Carbon Dioxide 27 (21-32) mEq/L Anion Gap 13.2 (5-15) BUN 12 (7-18) mg/dL Creatinine 0.8 (0.55-1.02) mg/dL Est Cr Clr Drug Dosing 103.26 mL/min Estimated GFR (MDRD) > 60 (>60) mL/min BUN/Creatinine Ratio 15.0 (14-18) Glucose 95 (74-106) mg/dL Calcium 8.3 L (8.5-10.1) mg/dL Total Bilirubin 0.4 (0.2-1.0) mg/dL AST 10 L (15-37) U/L ALT 12 L (14-59) U/L Alkaline Phosphatase 52 (46-116) U/L C-Reactive Protein <0.2 (<1.0) mg/dL Total Protein 6.1 L (6.4-8.2) g/dl Albumin 3.6 (3.4-5.0) g/dl Globulin 2.5 gm/dL Albumin/Globulin Ratio 1.4 (1-2) HCG, Qual (NEGATIVE) Urine Color (Yellow) Urine Appearance (Clear) Urine pH (5.0-8.0) Ur Specific [place] (1.005-1.030) Urine Protein (Negative) Urine Glucose (UA) (Negative) Urine Ketones (Negative) Urine Occult Blood (Negative) Urine Nitrite (Negative) Urine Bilirubin (Negative) Urine Urobilinogen (0.2-1.0) Ur Leukocyte Esterase (Negative) Urine RBC (0-5) /hpf Urine WBC (0-5) /hpf Ur Epithelial Cells (0-5) /hpf Urine Bacteria (FEW) /hpf Urine Mucus (FEW) /hpf 10/23/19 10/23/19 Range/Units 07:40 08:09 WBC (3.98-10.04) K/mm3 RBC (3.98-5.22) M/mm3 Hgb (11.2-15.7) gm/dl Hct (34.1-44.9) % MCV (79.4-94.8) fl MCH (25.6-32.2) pg MCHC (32.2-35.5) g/dl RDW Std Deviation (36.4-46.3) fL Plt Count (182-369) K/mm3 MPV (9.4-12.3) fl Neut % (Auto) (34.0-71.1) % Lymph % (Auto) (19.3-51.7) % [place] % (Auto) (4.7-12.5) % Eos % (Auto) (0.7-5.8) Baso % (Auto) (0.1-1.2) % Neut # (Auto) (1.56-6.13) K/mm3 Lymph # (Auto) (1.18-3.74) K/mm3 [place] # (Auto) (0.24-0.36) K/mm3 Eos # (Auto) (0.04-0.36) K/mm3 Baso # (Auto) (0.01-0.08) K/mm3 Sodium (136-145) mEq/L Potassium (3.5-5.1) mEq/L Chloride (98-107) mEq/L Carbon Dioxide (21-32) mEq/L Anion Gap (5-15) BUN (7-18) mg/dL Creatinine (0.55-1.02) mg/dL Est Cr Clr Drug Dosing mL/min Estimated GFR (MDRD) (>60) mL/min BUN/Creatinine Ratio (14-18) Glucose (74-106) mg/dL Calcium (8.5-10.1) mg/dL Total Bilirubin (0.2-1.0) mg/dL AST (15-37) U/L ALT (14-59) U/L Alkaline Phosphatase (46-116) U/L C-Reactive Protein (<1.0) mg/dL Total Protein (6.4-8.2) g/dl Albumin (3.4-5.0) g/dl Globulin gm/dL Albumin/Globulin Ratio (1-2) HCG, Qual Negative (NEGATIVE) Urine Color Yellow (Yellow) Urine Appearance Slt cloudy H (Clear) Urine pH 6.0 (5.0-8.0) Ur Specific [place] > or = 1.030 (1.005-1.030) Urine Protein Negative (Negative) Urine Glucose (UA) Negative (Negative) Urine Ketones Negative (Negative) Urine Occult Blood Negative (Negative) Urine Nitrite Negative (Negative) Urine Bilirubin Negative (Negative) Urine Urobilinogen 0.2 (0.2-1.0) Ur Leukocyte Esterase 1+ H (Negative) Urine RBC 0-5 (0-5) /hpf Urine WBC 5-10 H (0-5) /hpf Ur Epithelial Cells 0-5 (0-5) /hpf Urine Bacteria Moderate H (FEW) /hpf Urine Mucus Many H (FEW) /hpf Meds: Medications Discontinued Medications Generic Name Dose Route Start Last Admin Trade Name Carolynn PRN Reason Stop Dose Admin Ondansetron HCl 4 mg 10/23/19 07:24 10/23/19 07:38 Zofran Odt PO 10/23/19 07:25 4 mg ONETIME ONE Administration Departure - Departure Time of Disposition: 09:44 Disposition: Home, Self-Care 01 Condition: Fair Clinical Impression: UTI (urinary tract infection) - Discharge Information Prescriptions: Nitrofurantoin Monohyd/M-Cryst [Macrobid 100 mg Capsule] 100 mg PO BID #10 capsule Referrals: PCP,None [Primary Care Provider] - Forms: ED Department Discharge Additional Instructions: Drink plenty of water to maintain hydration, Macrobid 100 mg twice daily for 5 days. Prescription has been sent electronically to [facility]. Urine culture has been ordered. It usually does take about 2 days for those results to become available. Follow-up with 1 of our medical providers at our [facility] medical clinic Wednesday or this week. Call [phone] for appointment. Sepsis Event Note - Evaluation Sepsis Screening Result: No Definite Risk - Focused Exam Vital Signs: Vital Signs Temp Pulse Resp BP Pulse Ox 10/23/19 06:47 98.1 F 84 18 124/65 100 Date Exam was Performed: 10/23/19 Time Exam was Performed: 09:51 - My Orders Last 24 Hours: My Active Orders 10/23/19 08:09 CULTURE URINE [RM] Stat - Assessment/Plan Last 24 Hours: My Active Orders 10/23/19 08:09 CULTURE URINE [RM] Stat
== END 2019-10-23 10:10 | disposition home or self-care (01) ==
LOC: JD.ED 06:44
DX: N39.0 Urinary tract infection, site not specified (principal); F17.210 Nicotine dependence, cigarettes, uncomplicated; F41.9 Anxiety disorder, unspecified; F32.9 Major depressive disorder, single episode, unspecified; Z88.0 Allergy status to penicillin; Z88.2 Allergy status to sulfonamides; Z79.899 Other long term (current) drug therapy
CPT/HCPCS: 36415; 80053; 81001; 84703; 85025; 86140; 87086; 99284; A9270; 99283

== ENCOUNTER 2020-03-06 09:03 | Emergency (ER) | payer SELFPAY ==
[2020-03-06] MEDS ORDERED: Albuterol 6.7 GM Inhaler INH ONE (09:58)
--- NOTE | 2020-03-06 10:20 | EDM.PDOC ---
ED HPI GENERAL MEDICAL PROBLEM - General Chief Complaint: Respiratory Problem Stated Complaint: SOB Time Seen by Provider: 03/06/20 09:26 Source of Information: Reports: Patient History Limitations: Reports: No Limitations - History of Present Illness INITIAL COMMENTS - FREE TEXT/NARRATIVE: The patient presents with a fever, sore throat, cough and shortness of breath. This has been going on for a few days. She was seen at the walk in clinic a couple of days ago and was checked for strep and COVID. The strep was negative. The COVID is pending. She says she has more shortness of breath. She has no history of asthma but she does get bronchitis easily. She has no loss of taste and smell. She has no other medical problems. Onset: Gradual Duration: Day(s): Severity: Moderate Improves with: Reports: None Worsens with: Reports: None Associated Symptoms: Reports: Cough, Fever/Chills, Shortness of Breath. Denies: Chest Pain, Nausea/Vomiting Chest Pain Score (Numeric/FACES): 6 - Related Data Allergies Allergy/AdvReac Type Severity Reaction Status Date / Time Penicillins Allergy Severe Rash Verified 03/06/20 09:33 Sulfa (Sulfonamide Allergy Severe Rash Verified 03/06/20 09:33 Antibiotics) Home Meds: Home Meds Lisdexamfetamine Dimesylate [Vyvanse] 50 mg PO QAM #10 capsule 06/14/19 [Rx] busPIRone [Buspar] 15 mg PO BID #20 tab 06/14/19 [Rx] ClonazePAM [KlonoPIN] 0.5 mg PO DAILY PRN 07/04/19 [History] DULoxetine HCl [Duloxetine HCl] 60 mg PO QPM 07/04/19 [History] Cetirizine [ZyrTEC] 10 mg PO DAILY 08/08/19 [History] ClonazePAM [KlonoPIN] 1 mg PO BEDTIME 08/08/19 [History] Multivitamin Gummies 1 tab PO DAILY 08/08/19 [History] medroxyPROGESTERone Acetate [Depo-Provera] 1 injection INJECT Q3M 08/08/19 [History] traZODone HCl [Trazodone HCl] 50 mg PO BEDTIME 08/08/19 [History] Nitrofurantoin Monohyd/M-Cryst [Macrobid 100 mg Capsule] 100 mg PO BID #10 capsule 10/23/19 [Rx] Azithromycin [Zithromax] 250 mg PO DAILY #6 tab 03/06/20 [Rx] Codeine/Promethazine [Phenergan with Codeine] 5 - 10 ml PO Q6HR PRN #300 ml 03/06/20 [Rx] Past Medical History - Past Health History Medical/Surgical History: Denies Medical/Surgical History HEENT History: Reports: Allergic Rhinitis, Impaired Vision Other HEENT History: Wears glasses Cardiovascular History: Reports: None Respiratory History: Reports: Bronchitis, Recurrent Gastrointestinal History: Reports: None Genitourinary History: Reports: None 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: Other (See Below) Other ELECTRONICS ENGINEERING 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 History: control Musculoskeletal History: Reports: None Neurological History: Reports: Other (See Below) Psychiatric History: Reports: ADHD, Anxiety, Depression, Suicide Attempt, Suicidal Ideation Endocrine/Metabolic History: Reports: None Hematologic History: Reports: None Immunologic History: Reports: None Oncologic (Cancer) History: Reports: None Dermatologic History: Reports: None - Past Surgical History Head Surgeries/Procedures: Reports: None HEENT Surgical History: Reports: Oral Surgery Other HEENT Surgeries/Procedures: [place] tooth extraction GI Surgical History: Reports: Appendectomy Female Surgical History: Reports: Other (See Below) Social & Family History - Family History Family Medical History: Noncontributory - Tobacco Use Smoking Status *Q: Light Tobacco Smoker Years of Tobacco use: 4 Packs/Tins Daily: 0.2 - Caffeine Use Caffeine Use: Reports: Coffee - Living Situation & Occupation Living situation: Reports: Single, Alone Occupation: Employed ([employer]) ED ROS GENERAL - Review of Systems Review Of Systems: See Below Constitutional: Reports: Fever, Chills HEENT: Reports: Throat Pain Respiratory: Reports: Shortness of Breath, Cough Cardiovascular: Reports: No Symptoms Endocrine: Reports: No Symptoms GI/Abdominal: Reports: No Symptoms : Reports: No Symptoms Musculoskeletal: Reports: No Symptoms ED EXAM, GENERAL - Physical Exam Exam: See Below Exam Limited By: No Limitations General Appearance: Alert, No Apparent Distress Ears: Normal External Exam Nose: Normal Inspection Head: Atraumatic, Normocephalic Neck: Normal Inspection Respiratory/Chest: No Respiratory Distress, Wheezing Cardiovascular: Regular Rate, Rhythm, No Edema, No Murmur GI/Abdominal: Soft, Non-Tender, No Organomegaly, No Mass Back Exam: Normal Inspection Course - Vital Signs Last Recorded V/S: Last Vital Signs Temp 97.6 F 03/06/20 09:22 Pulse 93 03/06/20 09:22 Resp 20 03/06/20 09:22 BP 127/95 H 03/06/20 09:22 Pulse Ox 97 03/06/20 09:22 - Orders/Labs/Meds Orders: Active Orders 24 hr Category Date Time Status RT Post Treatment Assessment [RC] Click to Edit Care 03/06/20 09:59 Active RT Pre-Treatment Assessment [RC] Click to Edit Care 03/06/20 09:59 Active CXR [Chest 1V Frontal] [CR] Stat Exams 03/06/20 09:59 Taken Meds: Medications Discontinued Medications Generic Name Dose Route Start Last Admin Trade Name Freq PRN Reason Stop Dose Admin Albuterol 0 gm 03/06/20 09:58 03/06/20 10:54 Proventil Hfa INH 03/06/20 09:59 2 puff ONETIME ONE Administration - Re-Assessments/Exams Free Text/Narrative Re-Assessment/Exam: 03/06/20 10:20 I ordered a CXR and albuterol 2 puffs. 03/06/20 11:02 Her CXR looks good. I will treat her for bronchitis and wait for her COVID test. Departure - Departure Time of Disposition: 11:05 Disposition: Home, Self-Care 01 Condition: Good Clinical Impression: Bronchitis - Discharge Information *PRESCRIPTION DRUG MONITORING PROGRAM REVIEWED*: No *COPY OF PRESCRIPTION DRUG MONITORING REPORT IN PATIENT BOB: No Prescriptions: Codeine/Promethazine [Phenergan with Codeine] 5 - 10 ml PO Q6HR PRN #300 ml PRN Reason: Cough Azithromycin [Zithromax] 250 mg PO DAILY #6 tab Referrals: PCP,None [Primary Care Provider] - Forms: ED Department Discharge Additional Instructions: Use the albuterol 2 puffs every 6 hours as needed for shortness of breath. Take the zithromax 2 pills on day 1 and one pill on day 2 through 5. Use the phenergan with codeine 5 to 10 mls every 6 hours as needed for cough. Quarantine in your apartment until the COVID results. If positive, you will need to do that for 2 weeks. Sepsis Event Note (ED) - Evaluation Sepsis Screening Result: Possible Sepsis Risk - Focused Exam Vital Signs: Vital Signs Temp Pulse Resp BP Pulse Ox 03/06/20 09:22 97.6 F 93 20 127/95 H 97 - My Orders Last 24 Hours: My Active Orders 03/06/20 09:59 RT Post Treatment Assessment [RC] Click to Edit RT Pre-Treatment Assessment [RC] Click to Edit CXR [Chest 1V Frontal] [CR] Stat - Assessment/Plan Last 24 Hours: My Active Orders 03/06/20 09:59 RT Post Treatment Assessment [RC] Click to Edit RT Pre-Treatment Assessment [RC] Click to Edit CXR [Chest 1V Frontal] [CR] Stat
--- NOTE | 2020-03-06 11:20 | CR ---
Chest: Portable view of the chest was obtained. Comparison: No previous chest imaging is available. Heart size and mediastinum are normal. Lungs are clear with no acute parenchymal change. Bony structures are grossly intact. Impression: 1. Nothing acute is appreciated on portable chest x-ray. Diagnostic code #1 This report was dictated in MDT
== END 2020-03-06 11:18 | disposition home or self-care (01) ==
LOC: JD.ED 09:03
DX: J40 Bronchitis, not specified as acute or chronic (principal); F41.9 Anxiety disorder, unspecified; F32.9 Major depressive disorder, single episode, unspecified; F90.9 Attention-deficit hyperactivity disorder, unspecified type; F17.210 Nicotine dependence, cigarettes, uncomplicated; Z88.0 Allergy status to penicillin; Z88.2 Allergy status to sulfonamides; Z79.899 Other long term (current) drug therapy
CPT/HCPCS: 71045; 94640; 99285; A9270; 99283

== ENCOUNTER 2020-07-22 14:18 | Emergency (ER) | payer BC ==
[2020-07-22] MEDS ORDERED: Sodium Chloride 0.9% 10 ML Syringe FLUSH PRN (14:36)
--- NOTE | 2020-07-22 16:14 | EDM.PDOC ---
ED HPI GENERAL MEDICAL PROBLEM - General Chief Complaint: General Stated Complaint: DIZZY,DEHYDRATION, POSITIVE COVID Time Seen by Provider: 07/22/20 14:27 Source of Information: Reports: Patient, RN Notes Reviewed History Limitations: Reports: No Limitations - History of Present Illness INITIAL COMMENTS - FREE TEXT/NARRATIVE: Patient is a 24-year-old female presenting to the emergency department with complaints of chest heaviness, nose, headache, intermittent abdominal pain, diarrhea, and intermittent dizziness. She was diagnosed Covid +3 days ago. States symptoms started 2 days prior to that. She has been running low-grade fevers at home with a T-max of 100.5. States she has been afebrile today. Denies any significant cough or shortness of breath. Patient is otherwise healthy with no underlying chronic medical conditions. Vital signs in triage were stable. Temperature 96.5, pulse 87, respiratory rate 18, blood pressure 133/78, oxygen saturation 95% on room air. Chest Pain Score (Numeric/FACES): 6 - Related Data Allergies Allergy/AdvReac Type Severity Reaction Status Date / Time Penicillins Allergy Severe Rash Verified 07/22/20 14:34 Sulfa (Sulfonamide Allergy Severe Rash Verified 07/22/20 14:34 Antibiotics) Home Meds: Home Meds Lisdexamfetamine Dimesylate [Vyvanse] 50 mg PO QAM #10 capsule 06/14/19 [Rx] busPIRone [Buspar] 15 mg PO BID #20 tab 06/14/19 [Rx] ClonazePAM [KlonoPIN] 0.5 mg PO DAILY PRN 07/04/19 [History] DULoxetine HCl [Duloxetine HCl] 60 mg PO QPM 07/04/19 [History] Cetirizine [ZyrTEC] 10 mg PO DAILY 08/08/19 [History] ClonazePAM [KlonoPIN] 1 mg PO BEDTIME 08/08/19 [History] Multivitamin Gummies 1 tab PO DAILY 08/08/19 [History] traZODone HCl [Trazodone HCl] 50 mg PO BEDTIME 08/08/19 [History] Past Medical History - Past Health History Medical/Surgical History: Denies Medical/Surgical History HEENT History: Reports: Allergic Rhinitis, Impaired Vision Other HEENT History: Wears glasses Cardiovascular History: Reports: None Respiratory History: Reports: Bronchitis, Recurrent Gastrointestinal History: Reports: None Genitourinary History: Reports: None 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 (See Below) Other RECORDINGS LIBRARIAN History: control Musculoskeletal History: Reports: None Neurological History: Reports: Other (See Below) Psychiatric History: Reports: ADHD, Anxiety, Depression, Suicide Attempt, Suicidal Ideation Endocrine/Metabolic History: Reports: None Hematologic History: Reports: None Immunologic History: Reports: None Oncologic (Cancer) History: Reports: None Dermatologic History: Reports: None - Infectious Disease History Infectious Disease History: Reports: Novel Coronavirus - Past Surgical History Head Surgeries/Procedures: Reports: None HEENT Surgical History: Reports: Oral Surgery Other HEENT Surgeries/Procedures: [place] tooth extraction Cardiovascular Surgical History: Reports: None Respiratory Surgical History: Reports: None GI Surgical History: Reports: Appendectomy Female Surgical History: Reports: Other (See Below) Endocrine Surgical History: Reports: None Neurological Surgical History: Reports: None Musculoskeletal Surgical History: Reports: None Oncologic Surgical History: Reports: None Dermatological Surgical History: Reports: None Social & Family History - Family History Family Medical History: No Pertinent Family History - Caffeine Use Caffeine Use: Reports: None - Recreational Drug Use Recreational Drug Use: No - Living Situation & Occupation Living situation: Reports: Single, Alone Occupation: Employed ([employer]) ED ROS GENERAL - Review of Systems Review Of Systems: See Below Constitutional: Reports: Fever, Fatigue HEENT: Reports: Rhinitis. Denies: Vision Change Respiratory: Reports: Pleuritic Chest Pain. Denies: Shortness of Breath, Cough Cardiovascular: Reports: No Symptoms Endocrine: Reports: No Symptoms GI/Abdominal: Reports: Diarrhea, Nausea. Denies: Vomiting : Reports: No Symptoms Musculoskeletal: Reports: No Symptoms Skin: Reports: No Symptoms Neurological: Reports: Dizziness, Headache Psychiatric: Reports: No Symptoms Hematologic/Lymphatic: Reports: No Symptoms Immunologic: Reports: No Symptoms ED EXAM, GENERAL - Physical Exam Exam: See Below General Appearance: Alert, WD/WN, No Apparent Distress Eye Exam: Bilateral Eye: PERRL Respiratory/Chest: No Respiratory Distress, Lungs Clear, Normal Breath Sounds, No Accessory Muscle Use, Chest Non-Tender Cardiovascular: Normal Peripheral Pulses, Regular Rate, Rhythm, No Edema, No Gallop, No JVD, No Murmur, No Rub GI/Abdominal: Normal Bowel Sounds, Soft, Non-Tender, No Organomegaly, No Distention, No Abnormal Bruit, No Mass Neurological: Alert, Oriented, CN II-XII Intact, Normal Cognition, Normal Gait, Normal Reflexes, No Motor/Sensory Deficits Psychiatric: Normal Affect, Normal Mood Skin Exam: Warm, Dry, Intact, Normal Color, No Rash Course - Vital Signs Last Recorded V/S: Last Vital Signs Temp 96.5 F L 07/22/20 14:26 Pulse 87 07/22/20 14:26 Resp 18 07/22/20 14:26 BP 133/78 07/22/20 14:26 Pulse Ox 95 07/22/20 14:26 Orthostatic Blood Pressure [ 121/81 Standing] Orthostatic Blood Pressure [ 120/79 Sitting] Orthostatic Blood Pressure [ 119/77 Supine] - Orders/Labs/Meds Labs: Laboratory Tests 07/22/20 07/22/20 07/22/20 Range/Units 15:10 15:10 15:10 WBC 2.65 L (3.98-10.04) K/mm3 RBC 4.62 (3.98-5.22) M/mm3 Hgb 12.8 (11.2-15.7) gm/dl Hct 39.2 (34.1-44.9) % MCV 84.8 (79.4-94.8) fl MCH 27.7 (25.6-32.2) pg MCHC 32.7 (32.2-35.5) g/dl RDW Std Deviation 42.8 (36.4-46.3) fL Plt Count 162 L (182-369) K/mm3 MPV 10.2 (9.4-12.3) fl Neut % (Auto) 52.8 (34.0-71.1) % Lymph % (Auto) 36.2 (19.3-51.7) % [place] % (Auto) 10.6 (4.7-12.5) % Eos % (Auto) 0 L (0.7-5.8) Baso % (Auto) 0.4 (0.1-1.2) % Neut # (Auto) 1.40 L (1.56-6.13) K/mm3 Lymph # (Auto) 0.96 L (1.18-3.74) K/mm3 [place] # (Auto) 0.28 (0.24-0.36) K/mm3 Eos # (Auto) 0.00 L (0.04-0.36) K/mm3 Baso # (Auto) 0.01 (0.01-0.08) K/mm3 Manual Slide Review Abnormal smear D-Dimer, Quantitative 0.21 (0.19-0.50) mg/L Sodium 138 (136-145) mEq/L Potassium 4.1 (3.5-5.1) mEq/L Chloride 103 (98-107) mEq/L Carbon Dioxide 28 (21-32) mEq/L Anion Gap 11.1 (5-15) BUN 10 (7-18) mg/dL Creatinine 0.8 (0.55-1.02) mg/dL Est Cr Clr Drug Dosing 103.26 mL/min Estimated GFR (MDRD) > 60 (>60) mL/min BUN/Creatinine Ratio 12.5 L (14-18) Glucose 87 (74-106) mg/dL Calcium 8.5 (8.5-10.1) mg/dL Total Bilirubin 0.4 (0.2-1.0) mg/dL AST 20 (15-37) U/L ALT 35 (14-59) U/L Alkaline Phosphatase 63 (46-116) U/L C-Reactive Protein 4.1 H* (<1.0) mg/dL Total Protein 6.5 (6.4-8.2) g/dl Albumin 3.2 L (3.4-5.0) g/dl Globulin 3.3 gm/dL Albumin/Globulin Ratio 1.0 (1-2) Meds: Medications Discontinued Medications Generic Name Dose Route Start Last Admin Trade Name Freq PRN Reason Stop Dose Admin Sodium Chloride 10 ml 07/22/20 14:36 Saline Flush FLUSH ASDIRECTED PRN Keep Vein Open - Re-Assessments/Exams Free Text/Narrative Re-Assessment/Exam: Patient is a 24-year-old female presenting to the emergency department with complaints of intermittent dizziness, diarrhea, and concerned that she could be dehydrated. She was diagnosed Covid +3 days ago. She is also had headaches, low-grade fevers, and some nausea. She denies any significant cough or shortness of breath. I ordered orthostatic vital signs as well as blood work including CBC, CMP, CRP, and D-dimer. Also do 1 view chest x-ray. 12/07/20 16:15 Patient's work-up was grossly unremarkable. Orthostatic vital signs were negative. Blood work was normal with no signs of dehydration. D-dimer was normal. Chest x-ray showed no acute abnormalities. Discussed symptomatic treatment, follows return precautions with the patient. Discharge instructions as documented. Departure - Departure Time of Disposition: 16:17 Disposition: Home, Self-Care 01 Condition: Good Clinical Impression: COVID-19 - Discharge Information *PRESCRIPTION DRUG MONITORING PROGRAM REVIEWED*: No *COPY OF PRESCRIPTION DRUG MONITORING REPORT IN PATIENT BOB: No Instructions: COVID-19 Frequently Asked Questions, COVID-19 Referrals: PCP,None [Primary Care Provider] - Forms: ED Department Discharge Additional Instructions: You were seen in the emergency department today for evaluation with regards to COVID-19. Work-up included blood work, chest x-ray, and orthostatic vital signs. Results your work-up were found to be normal. You are not dehydrated and he did not have pneumonia or a blood clot in your lungs. Your vital signs in the emergency department were normal. Recommend that you continue to rest. Ensure that you are taking an adequate amount of fluid. If you develop any new or worsening symptoms of concern, please not hesitate to return to the emergency department for reevaluation. Sepsis Event Note (ED) - Evaluation Sepsis Screening Result: No Definite Risk
--- NOTE | 2020-07-23 07:48 | CR ---
Chest: Portable view of the chest was obtained. Comparison: Prior chest x-ray of 03/06/20. Findings: Heart and mediastinum: Heart size and mediastinum are normal, no mediastinal mass is seen. Lungs: Lungs are clear with no acute parenchymal change. Osseous: Bony structures are grossly intact. Impression: 1. Nothing acute is appreciated on portable chest x-ray. Diagnostic code #1
== END 2020-07-22 16:40 | disposition home or self-care (01) ==
LOC: JD.ED 14:18
DX: U07.1 COVID-19 (principal); F90.9 Attention-deficit hyperactivity disorder, unspecified type; F41.9 Anxiety disorder, unspecified; F32.9 Major depressive disorder, single episode, unspecified; Z79.899 Other long term (current) drug therapy; Z88.0 Allergy status to penicillin; Z88.2 Allergy status to sulfonamides
CPT/HCPCS: 36415; 71045; 71045-26; 80053; 85025; 85379; 86140; 99283; 99285-25

== ENCOUNTER 2020-09-14 05:20 | Emergency (ER) | payer BC ==
[2020-09-14] MEDS ORDERED: Clindamycin HCl 150 MG Cap PO STA (06:01)
--- NOTE | 2020-09-14 06:08 | EDM.PDOC ---
ED HPI GENERAL MEDICAL PROBLEM - General Chief Complaint: ENT Problem Stated Complaint: STREP THROAT/UNABLE TO SWALLOW Time Seen by Provider: 09/14/20 05:31 Source of Information: Reports: Patient, Family (Mother) History Limitations: Reports: No Limitations - History of Present Illness INITIAL COMMENTS - FREE TEXT/NARRATIVE: Ms. Brandon is a pleasant 24-year-old woman who states that she was diagnosed with streptococcal pharyngitis at the walk-in clinic this past 09/10/2020, after developing a sore throat the day before, on 09/09/2020. Because of an allergy to penicillin, she was prescribed a Z-Amandeep, which she has been taking as prescribed. She states that she has 1 pill remaining. Despite this, however, the patient states that her throat is still sore, that she has difficulty drinking. She has not had a fever, abdominal pain, nausea, or vomiting. The patient states that this is her first diagnosed episode of streptococcal pharyngitis. The patient states that she took 1000 g of Tylenol around midnight, but none prior to or since. She has not taken any other ipah-npk-zsisdlp or home remedies, such as warm salt water gargles or Chloraseptic. Here in the ED, the patient is found to be hemodynamically stable, afebrile, saturating 94% on room air. The patient states that she was diagnosed with COVID-19 on 07/16/2020. She did not get significantly ill. Prior to Wednesday, the patient denies having a recent fever, chills, sore throat, ear pain, nasal or sinus congestion, cough, dyspnea, chest pain, palpitations, nausea, vomiting, constipation, diarrhea, abdominal pain, urinary symptoms, recent weight gain or weight loss, recent bloody bowel movements or black bowel movements, recent joint aches, headaches, or rashes. The patient's PCP is Geena Perez NP. Her Digital Media Analyst is Dr. Sandeep Huertas. Her psychiatric midlevel is Dr. Nova Ren NP. She did not receive an influenza vaccine this season, and declined an offer to receive one here in the ED. Throat Pain Score (Numeric/FACES): 8 - Related Data Allergies Allergy/AdvReac Type Severity Reaction Status Date / Time Penicillins Allergy Severe Rash Verified 09/14/20 05:36 Sulfa (Sulfonamide Allergy Severe Rash Verified 09/14/20 05:36 Antibiotics) Home Meds: Home Meds Lisdexamfetamine Dimesylate [Vyvanse] 50 mg PO QAM #10 capsule 06/14/19 [Rx] ClonazePAM [KlonoPIN] 0.5 mg PO DAILY PRN 07/04/19 [History] Cetirizine [ZyrTEC] 10 mg PO DAILY 08/08/19 [History] ClonazePAM [KlonoPIN] 1 mg PO BEDTIME 08/08/19 [History] Clindamycin HCl 1 cap PO Q8H #21 capsule 09/14/20 [Rx] Past Medical History HEENT History: Reports: Allergic Rhinitis, Impaired Vision (wears glasses) [employer] History: Reports: Other (See Below) (Ovarian cysts) Psychiatric History: Reports: ADHD, Anxiety, Depression, Suicide Attempt - Infectious Disease History Infectious Disease History: Reports: Novel Coronavirus (dx'd 07/16/2020) - Past Surgical History GI Surgical History: Reports: Appendectomy (07/29/2018) Female Surgical History: Reports: Other (See Below) (Exploratory laparoscopy for ovarian cyst 07/29/2018) Social & Family History - Tobacco Use Tobacco Use Status *Q: Never Tobacco User Tobacco Use Within Last Twelve Months: Vaping (Nicotine) - Caffeine Use Caffeine Use: Reports: None - Alcohol Use Alcohol Use History: Yes Alcohol Use Frequency: Socially - Recreational Drug Use Recreational Drug Use: Yes Drug Use in Last 12 Months: No Recreational Drug Type: Reports: Marijuana/Hashish (last smoked 2017) - Living Situation & Occupation Living situation: Reports: Single, Alone Occupation: Employed ([employer]) ED ROS ENT - Review of Systems Review Of Systems: Comprehensive ROS is negative, except as noted in HPI. ED EXAM, ENT - Physical Exam Exam: See Below Exam Limited By: No Limitations General Appearance: Alert, WD/WN, No Apparent Distress Eye Exam: Bilateral Eye: EOMI, Normal Inspection Ears: Normal External Exam, Normal Canal, Hearing Grossly Normal, Normal TMs Nose: Normal Inspection, Normal Mucousa, No Blood Mouth/Throat: Normal Gums, Normal Lips, Normal Teeth, Tonsillar Exudates (right, mild), Tonsillar Swelling (right, mild), Uvular Edema. No: Peritonsillar Mass, Pharyngeal Erythema, Throat Swelling, Uvular Deviation Head: Atraumatic, Normocephalic Neck: Normal Inspection, Supple, Non-Tender, Full Range of Motion. No: Lymphadenopathy (L), Lymphadenopathy (R) Course - Vital Signs Last Recorded V/S: Last Vital Signs Temp 36.7 C 09/14/20 05:33 Pulse 88 09/14/20 05:33 Resp 16 09/14/20 05:33 BP 124/78 09/14/20 05:33 Pulse Ox 94 L 09/14/20 05:33 - Orders/Labs/Meds Meds: Medications Discontinued Medications Generic Name Dose Route Start Last Admin Trade Name Carolynn PRN Reason Stop Dose Admin Clindamycin HCl 300 mg 09/14/20 06:01 09/14/20 06:18 Cleocin PO 09/14/20 06:02 300 mg ONETIME STA Administration - Re-Assessments/Exams Free Text/Narrative Re-Assessment/Exam: 09/14/20 06:03 As above, the patient was diagnosed with streptococcal pharyngitis this past Wednesday, and has been taking a Z-Amandeep as prescribed ever since, however, she continues to have a sore throat with difficulty swallowing. No recent fever, nausea, or vomiting. On examination, she has uvular edema, and her right tonsil is somewhat enlarged with a visible exudate, however, there is no suggestion of peritonsillar cellulitis or a peritonsillar abscess. We discussed the option o f obtaining a CT of the soft tissue of the neck with IV contrast to confirm no abscess, but I did not press for it, and they did not express a desire to pursue it. Because the patient has not significantly improved since Wednesday, I am, however, recommending that we switch her antibiotic to clindamycin 300 mg 3 times a day. Ordinarily, we would prescribe a 10-day course, but because she has been on azithromycin for 5 days today, I will limit the clindamycin to a 7- day course. I am also recommending that the patient begin using Chloraseptic spray whenever she needs to eat or drink, along with warm salt water gargles several times a day. I am also recommending that she start taking [id number] ibuprofen on a regular basis. Departure - Departure Time of Disposition: 06:05 Disposition: Home, Self-Care 01 Condition: Good Clinical Impression: Streptococcal pharyngitis - Discharge Information *PRESCRIPTION DRUG MONITORING PROGRAM REVIEWED*: Not Applicable *COPY OF PRESCRIPTION DRUG MONITORING REPORT IN PATIENT BOB: Not Applicable Prescriptions: Clindamycin HCl 1 cap PO Q8H #21 capsule Instructions: Pharyngitis, [id number] Referrals: Geena Perez, PRAKASH [Ordering Only Provider] - Nova Ren RN [Ordering Only Provider] - Sandeep Huertas MD [Physician] - Forms: ED Department Discharge Additional Instructions: You were seen in the emergency room for continued continued sore throat with difficulty drinking after being diagnosed with strep throat on Wednesday. You have been started on the antibiotic clindamycin, and a prescription for clindamycin has been sent to the [facility], located at [address] [place] [address]. Take 1 capsule of clindamycin every 8 hours, starting around 2:00 this afternoon, 09/14/2020, as prescribed. Finish the entire prescription unless told otherwise by a doctor. We recommend that you purchase Chloraseptic spray, and use it anytime you need to eat or drink. We also recommend that you gargle with warm salt water several times a day. We recommend that you take [id number] ibuprofen, 3 tablets (600 mg) up to every 8 hours, with food, as needed for discomfort. Ibuprofen is also available as a children's liquid. If any other problems, please do not hesitate to return to the ER. Sepsis Event Note (ED) - Evaluation Sepsis Screening Result: No Definite Risk - Focused Exam Vital Signs: Vital Signs Temp Pulse Resp BP Pulse Ox 09/14/20 05:33 36.7 C 88 16 124/78 94 L
== END 2020-09-14 06:20 | disposition home or self-care (01) ==
LOC: JD.ED 05:20
DX: J02.0 Streptococcal pharyngitis (principal); Z72.0 Tobacco use; Z88.0 Allergy status to penicillin; Z88.2 Allergy status to sulfonamides; Z86.16 Personal history of COVID-19
CPT/HCPCS: 99282; A9270; 99283